=== PATIENT | male | born 1960 | race Caucasian/White ===

== ENCOUNTER 2023-05-08 09:45 | Day surgery (SDC) | payer BC ==
[2023-05-08] MEDS ORDERED: Sodium Chloride 0.9% 10 ML Syringe FLUSH PRN (10:00)
[2023-05-08] MEDS: Sodium Chloride 0.9% 1,000 ML IV SCH (10:29)
[2023-05-08] MEDS ORDERED: Midazolam 1 MG/ML 2 ML SDV ONE (11:07)
[2023-05-08] MEDS ORDERED: Propofol 200 MG/20 ML SDV ONE (11:08)
[2023-05-08 11:55] LABS: GLUCOSE,POC 153 mg/dL (70-140)
[2023-05-08 15:20] VITALS: BP 91/56; PULSE 62
== END 2023-05-08 13:09 | disposition home or self-care (01) ==
LOC: KA.SDS 09:45
PROVIDERS: ATTEND Family Medicine
DX: Z12.11 Encounter for screening for malignant neoplasm of colon (principal); K63.5 Polyp of colon; K57.30 Diverticulosis of large intestine without perforation or abscess without bleeding; K64.8 Other hemorrhoids; G47.33 Obstructive sleep apnea (adult) (pediatric); E11.9 Type 2 diabetes mellitus without complications; E78.5 Hyperlipidemia, unspecified; J06.9 Acute upper respiratory infection, unspecified; H90.3 Sensorineural hearing loss, bilateral; Z79.85 Long-term (current) use of injectable non-insulin antidiabetic drugs; Z79.4 Long term (current) use of insulin; Z79.84 Long term (current) use of oral hypoglycemic drugs; Z79.899 Other long term (current) drug therapy
CPT/HCPCS: 00811; 82947; J2250; J2704; J7030

== ENCOUNTER 2024-07-12 16:07 | Emergency (ER) | payer BC, MEDICARE ==
[2024-07-12 17:03] VITALS: BP 135/85; PULSE 75
== END 2024-07-12 17:08 | disposition home or self-care (01) ==
LOC: KA.ED 16:07
DX: M71.21 Synovial cyst of popliteal space [Baker], right knee (principal); M23.306 Other meniscus derangements, unspecified meniscus, right knee; M19.90 Unspecified osteoarthritis, unspecified site; E11.9 Type 2 diabetes mellitus without complications; Z79.82 Long term (current) use of aspirin; Z79.84 Long term (current) use of oral hypoglycemic drugs; Z79.899 Other long term (current) drug therapy
CPT/HCPCS: 73560-RT; 73565; 99283; 99284